=== PATIENT | male | born 1975 | race American Indian/Alaskan Native ===

== ENCOUNTER 2016-12-03 15:13 | Emergency (ER) | payer OTHER ==
[2016-12-03 16:09] VITALS: RESP 18
--- NOTE | 2016-12-03 18:11 | C.PDOC ---
History Of Present Illness 41 y/o male presents to ED with complaints of entire back pain for months. Patient states he went to PMD and was given Tramadol with no relief which prompted visit to ED today. Patient denies fever, chills, abdominal pain, urinary or bowel incontinence or any other complaints at this time. Time Seen by Provider: 12/03/16 17:29 Chief Complaint (Nursing): Back Pain History Per: Patient History/Exam Limitations: no limitations Onset/Duration Of Symptoms: Days Current Symptoms Are (Timing): Still Present Quality Of Discomfort: "Pain" Past Medical History Reviewed: Historical Data, Nursing Documentation, Vital Signs Vital Signs: Last Vital Signs Temp 98.2 F 12/03/16 19:11 Pulse 75 12/03/16 19:11 Resp 18 12/03/16 19:11 BP 116/69 12/03/16 19:11 Pulse Ox 100 12/03/16 19:38 - Medical History PMH: No Chronic Diseases Surgical History: No Surg Hx Family History: States: No Known Family Hx - Social History Hx Alcohol Use: No Hx Substance Use: No Review Of Systems Except As Marked, All Systems Reviewed And Found Negative. Constitutional: Negative for: Fever, Chills Gastrointestinal: Negative for: Nausea, Vomiting, Abdominal Pain Genitourinary: Negative for: Dysuria, Hematuria Musculoskeletal: Positive for: Back Pain. Negative for: Neck Pain Skin: Negative for: Rash Neurological: Negative for: Weakness, Numbness Physical Exam - Physical Exam Appears: Non-toxic, No Acute Distress Skin: Warm, Dry, No Rash Head: Atraumatic, Normacephalic Eye(s): bilateral: Normal Inspection, EOMI Oral Mucosa: Moist Neck: Normal ROM, Supple Chest: Symmetrical Back: Other (Tenderness diffusely) Extremity: Capillary Refill (<2 seconds), No Deformity Extremity: Bilateral: Normal ROM Neurological/Psych: Oriented x3, Normal Motor, Normal Sensation ED Course And Treatment O2 Sat by Pulse Oximetry: 100 (RA) Pulse Ox Interpretation: Normal - Other Rad LS Spine X-Ray: Interpreted by Me, Viewed By Me, Read By Radiologist Interpretation: PROCEDURE: Radiographs of the Lumbar Spine. HISTORY: pain. COMPARISON: No prior. FINDINGS: BONES: Normal alignment. No listhesis. No fracture. DISC SPACES: Unremarkable. OTHER FINDINGS: None. IMPRESSION: Unremarkable radiographs of the lumbar spine. Dorsal spine X-Ray: Interpreted by Me, Viewed By Me, Read By Radiologist Interpretation: HISTORY: pain. COMPARISON: No prior. FINDINGS: BONES: Alignment maintained. No fracture. Costo vertebral osseous hypertrophy T8-9. DISC SPACES: Normal. SOFT TISSUES: Normal. OTHER FINDINGS: None. IMPRESSION: Costo vertebral osseous hypertrophy T8-9 no fracture Cervical spine X-Ray: Interpreted by Me, Viewed By Me, Read By Radiologist Interpretation: PROCEDURE: Cervical Spine Radiographs. HISTORY: Pain. COMPARISON: None. FINDINGS: BONES: Alignment maintained. No fracture. Dens Intact. Minimal anterior degenerative type wedging C5 and C6. DISC SPACES: Lower limits of normal C5-6. SOFT TISSUES: Normal. No prevertebral soft tissue swelling. OTHER FINDINGS: None. IMPRESSION: No fracture. . Minimal anterior degenerative type wedging C5 and C6 Disposition - Disposition Disposition: HOME/ ROUTINE Disposition Time: 18:57 Condition: STABLE Additional Instructions: Follow up with PMD within 2-3 days. Return to Ed if feel worse. 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 - Scribe Statement The provider has reviewed the documentation as recorded by the Matthew Manriquez All medical record entries made by the Ikeibchanel were at my direction and personally dictated by me. I have reviewed the chart and agree that the record accurately reflects my personal performance of the history, physical exam, medical decision making, and the department course for this patient. I have also personally directed, reviewed, and agree with the discharge instructions and disposition.
[2016-12-03] MEDS ORDERED: Lidocaine 5% Patch TD ONE (19:07)
[2016-12-03 19:12] VITALS: BP 116/69; PULSE 75; TEMP 98.2
[2016-12-03] MEDS ORDERED: Lidocaine 5% Patch TD STA (19:13)
[2016-12-03 19:33] VITALS: O2SAT 100
== END 2016-12-03 19:15 | disposition home or self-care (01) ==
LOC: C.ER 15:13
DX: M54.9 Dorsalgia, unspecified (principal)

== ENCOUNTER 2016-12-26 02:22 | Emergency (ER) | payer OTHER ==
[2016-12-26 02:39] VITALS: RESP 20; TEMP 98.3; O2SAT 98
--- NOTE | 2016-12-26 03:24 | C.PDOC ---
History Of Present Illness 41 year old male presents to the ED for evaluation of pain and swelling to right facial area which began yesterday. Patient states he has not been able to follow up with a dentist and has not taken anything for his pain. Patient denies fever, chills. Time Seen by Provider: 12/26/16 02:50 Chief Complaint (Nursing): Dental Pain History Per: Patient History/Exam Limitations: no limitations Onset/Duration Of Symptoms: Hrs Current Symptoms Are (Timing): Still Present Quality: Positive for: "Pain" Additional History Per: Patient Past Medical History Reviewed: Historical Data, Nursing Documentation, Vital Signs Vital Signs: Last Vital Signs Temp 98.3 F 12/26/16 03:53 Pulse 72 12/26/16 03:53 Resp 20 12/26/16 03:53 BP 120/72 12/26/16 03:53 Pulse Ox 98 12/26/16 06:31 - Medical History PMH: No Chronic Diseases Surgical History: No Surg Hx Family History: States: Unknown Family Hx - Social History Hx Alcohol Use: No Hx Substance Use: No - Immunization History Hx Tetanus Toxoid Vaccination: Yes Hx Influenza Vaccination: No Hx Pneumococcal Vaccination: No Review Of Systems Constitutional: Negative for: Fever, Chills ENT: Positive for: Mouth Pain (right-sided ) Physical Exam - Physical Exam Appears: Non-toxic, No Acute Distress Skin: Normal Color, Warm, Dry Head: Atraumatic, Normacephalic, Swelling (right-sided maxillary ) Eye(s): bilateral: Normal Inspection Oral Mucosa: Moist, No Drooling Tongue: No Swelling Teeth: Caries (moderate, to right upper gingival area ), Tender To Palpation ( right upper teeth ) Gingiva: Erythema (right upper gingival area ), Tender (right upper gingival area ) Neck: Supple Extremity: Normal ROM Neurological/Psych: Oriented x3, Normal Speech, Normal Cognition Gait: Steady ED Course And Treatment O2 Sat by Pulse Oximetry: 98 (on RA) Pulse Ox Interpretation: Normal Progress Note: Ultram PO administered. On reassessment, patient is resting comfortably, showing no signs of distress, and reports an improvement in his dental pain. Patient is stable for discharge and is advised to follow up with dental care within 1-2 days for further evaluation. 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 - Scribe Statement The provider has reviewed the documentation as recorded by the Scribe (Joanna Dia) All medical record entries made by the Scribe were at my direction and personally dictated by me. I have reviewed the chart and agree that the record accurately reflects my personal performance of the history, physical exam, medical decision making, and the department course for this patient. I have also personally directed, reviewed, and agree with the discharge instructions and disposition.
[2016-12-26 03:58] VITALS: BP 120/72; PULSE 72
== END 2016-12-26 03:58 | disposition home or self-care (01) ==
LOC: C.ER 02:22
DX: K04.7 Periapical abscess without sinus (principal); K02.9 Dental caries, unspecified

== ENCOUNTER 2017-07-06 15:56 | Emergency (ER) | payer OTHER ==
[2017-07-06 16:22] VITALS: O2SAT 98
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
[2017-07-06 17:20] VITALS: BP 135/79; PULSE 72; RESP 16; TEMP 98.1
== END 2017-07-06 17:00 | disposition home or self-care (01) ==
LOC: C.ER 15:56
DX: S13.4XXA Sprain of ligaments of cervical spine, initial encounter (principal); V89.2XXA Person injured in unspecified motor-vehicle accident, traffic, initial encounter; M62.830 Muscle spasm of back